=== PATIENT | male | born 1975 | race Caucasian/White ===

== ENCOUNTER 2019-11-17 04:17 | Emergency (ER) | payer MEDICARE, MEDICAID ==
[~2019-11-17] VITALS: Ht 172.7 cm; Wt 61.8 kg
[~2019-11-17 04:17] MED LIST: CITA10SO PO; CITA20TA28 PO; HAL5T PO; IBUP-1986 PO
--- NOTE | 2019-11-17 04:30 | NUR ---
PT TO CT
--- NOTE | 2019-11-17 04:40 | NUR ---
PT BACK FROM CT
[2019-11-17 05:08] LABS: BASOPHILS # (AUTO) 0.1 X10'3 (0-0.2); EOSINOPHILS # (AUTO) 0.5 X10'3 (0-0.9); EOSINOPHILS % (AUTO) 4.9 % (0-6); HEMATOCRIT 41.5 % (42.0-52.0); HEMOGLOBIN 13.9 g/dl (14.0-17.9); LYMPHOCYTES # (AUTO) 2.2 X10'3 (1.1-4.8); LYMPHOCYTES % (AUTO) 23.7 % (21-51); MEAN CORPUSCULAR HEMOGLOBIN 30.4 PG (27.0-31.0); MEAN CORPUSCULAR HGB CONC 33.4 g/dL (33.0-36.5); MEAN CORPUSCULAR VOLUME 91.1 FL (78-98); MEAN PLATELET VOLUME 6.5 FL (7.4-10.4); MONOCYTES # (AUTO) 0.9 X10'3 (0-0.9); MONOCYTES % (AUTO) 9.6 % (2-12); NEUTROPHILS # (AUTO) 5.7 X10'3 (1.8-7.7); NEUTROPHILS % (AUTO) 60.8 % (42-75); PLATELET COUNT 358 X10'3 (140-440); RED BLOOD COUNT 4.56 X10'6 (4.70-6.10); RED CELL DISTRIBUTION WIDTH 13.6 % (11.5-14.5); WHITE BLOOD COUNT 9.3 X10'3 (4.5-11.0)
[2019-11-17 05:20] LABS: ALANINE AMINOTRANSFERASE 38 U/L (12-78); ALBUMIN 3.5 G/DL (3.4-5.0); ALBUMIN/GLOBULIN RATIO 1.1 (1.1-1.5); ALKALINE PHOSPHATASE 106 IU/L (46-116); ANION GAP 6 (8-16); ASPARTATE AMINO TRANSFERASE 35 U/L (10-37); BILIRUBIN,TOTAL 0.2 MG/DL (0.1-1.0); BLOOD UREA NITROGEN 15 MG/DL (7-18); BUN/CREATININE RATIO 14.7 (5.4-32.0); CALCIUM 8.7 MG/DL (8.5-10.1); CHLORIDE 108 MMOL/L (99-107); CREATININE 1.02 MG/DL (0.60-1.10); ETHANOL < 0.010 GM/DL (0.0-0.010); GLUCOSE 82 MG/DL (70-104); POTASSIUM 3.5 MMOL/L (3.5-5.1); SODIUM 143 MMOL/L (135-145); TOTAL CARBON DIOXIDE 28.8 MMOL/L (24-32); TOTAL PROTEIN 6.8 G/DL (6.4-8.2); eGFR 79 ML/MIN
[2019-11-17 05:39] LABS: URINE AMPHETAMINE SCREEN POSITIVE (Neg); URINE BARBITUATE SCREEN NEGATIVE (Neg); URINE BENZODIAZEPINES SCREEN NEGATIVE (Neg); URINE CANNABINOID SCREEN POSITIVE (Neg); URINE COCAINE SCREEN NEGATIVE (Neg); URINE METHADONE SCREEN NEGATIVE (Neg); URINE OPIATE SCREEN NEGATIVE (Neg); URINE PHENCYCLIDINE SCREEN NEGATIVE (Neg)
--- NOTE | 2019-11-17 06:06 | NUR ---
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
[2019-11-17 06:08] VITALS: BP 108/59
== END 2019-11-17 06:12 | disposition home or self-care (01) ==
LOC: ER 04:17
DX: R41.3 Other amnesia (principal); K21.9 Gastro-esophageal reflux disease without esophagitis; F41.9 Anxiety disorder, unspecified; F31.9 Bipolar disorder, unspecified; F41.0 Panic disorder [episodic paroxysmal anxiety]; Z79.899 Other long term (current) drug therapy; W11.XXXA Fall on and from ladder, initial encounter; Y93.89 Activity, other specified; Y92.89 Other specified places as the place of occurrence of the external cause; Y99.8 Other external cause status
CPT/HCPCS: 36415; 70450; 80053; 80305; 80320; 85025; 99284

== ENCOUNTER 2020-01-22 20:50 | Emergency (ER) | payer MEDICARE, MEDICAID ==
[~2020-01-22] VITALS: Ht 177.8 cm; Wt 86.3 kg
[2020-01-22 20:52] VITALS: BP 128/90
[2020-01-22] MEDS ORDERED: naproxen 500mg tablet PO ONE (21:30)
[2020-01-22 22:08] LABS: CLARITY,URINE CLEAR (Clear); COLOR,URINE YELLOW (Yellow); GLUCOSE, URINE NEGATIVE (Neg); KETONES,URINE NEGATIVE (Neg); LEUKOCYTE ESTERASE ,URINE NEGATIVE (Neg); NITRITES, URINE NEGATIVE (Neg); OCCULT BLOOD,URINE SMALL (Neg); PROTEIN,URINE TRACE mg/dl (Neg); UROBILINOGEN,URINE 0.2 E.U/dL (0.2-1.0)
[2020-01-22 22:14] LABS: UA COLLECTION TYPE CLN CATCH MIDSTREAM
[2020-01-22 22:19] LABS: HYALINE CASTS 0-3 /LPF (NEGATIVE); MUCUS STRANDS MANY /LPF (Neg); SQUAMOUS EPITHELIAL CELL,UR FEW /LPF (FEW)
[2020-01-22 22:20] LABS: BACTERIA,URINE NONE SEEN /HPF (Neg); WBC,URINE NONE SEEN /HPF (0-4)
[2020-01-22 22:30] LABS: URINE AMPHETAMINE SCREEN POSITIVE (Neg); URINE BARBITUATE SCREEN NEGATIVE (Neg); URINE BENZODIAZEPINES SCREEN NEGATIVE (Neg); URINE CANNABINOID SCREEN POSITIVE (Neg); URINE COCAINE SCREEN NEGATIVE (Neg); URINE METHADONE SCREEN NEGATIVE (Neg); URINE OPIATE SCREEN NEGATIVE (Neg); URINE PHENCYCLIDINE SCREEN NEGATIVE (Neg)
[2020-01-22] MEDS ORDERED: NAPR-56 PO (22:40)
== END 2020-01-22 22:46 | disposition home or self-care (01) ==
LOC: ER 20:51
DX: R10.9 Unspecified abdominal pain (principal); R31.9 Hematuria, unspecified; K21.9 Gastro-esophageal reflux disease without esophagitis; F31.9 Bipolar disorder, unspecified; F41.9 Anxiety disorder, unspecified; F15.90 Other stimulant use, unspecified, uncomplicated; Z72.89 Other problems related to lifestyle; Z79.899 Other long term (current) drug therapy
CPT/HCPCS: 80305; 81001; 99283

== ENCOUNTER 2020-06-04 18:41 | Emergency (ER) | payer MEDICARE, MEDICAID ==
[~2020-06-04] VITALS: Ht 177.8 cm; Wt 75.2 kg
[2020-06-04 18:56] VITALS: BP 132/82
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
[2020-06-04] MEDS ORDERED: IBUP-1984 PO (19:34)
[2020-06-04] MEDS ORDERED: CYCL-1 PO (19:34)
== END 2020-06-04 19:49 | disposition home or self-care (01) ==
LOC: ER 18:42
DX: M79.601 Pain in right arm (principal); M54.2 Cervicalgia; K21.9 Gastro-esophageal reflux disease without esophagitis; Z79.899 Other long term (current) drug therapy
CPT/HCPCS: 99283

== ENCOUNTER 2021-03-23 23:55 | Emergency (ER) | payer MEDICARE, MEDICAID ==
[~2021-03-23] VITALS: Ht 177.8 cm; Wt 72.7 kg
[~2021-03-23 23:55] MED LIST changes: +CYCL-1 PO
[2021-03-24] MEDS ORDERED: acetaminophen 325mg tablet PO ONE (00:10)
[2021-03-24 00:24] LABS: BASOPHILS % (AUTO) 0.6 % (0-1); EOSINOPHILS % (AUTO) 0.5 % (0-6); HEMATOCRIT 40.4 % (42.0-52.0); LYMPHOCYTES # (AUTO) 0.7 X10'3 (1.1-4.8); LYMPHOCYTES % (AUTO) 10.8 % (21-51); MEAN CORPUSCULAR HEMOGLOBIN 31.2 PG (27.0-31.0); MEAN CORPUSCULAR HGB CONC 34.6 g/dL (33.0-36.5); MEAN CORPUSCULAR VOLUME 90.3 FL (78-98); MEAN PLATELET VOLUME 6.7 FL (7.4-10.4); MONOCYTES # (AUTO) 0.6 X10'3 (0-0.9); MONOCYTES % (AUTO) 10.2 % (2-12); NEUTROPHILS # (AUTO) 4.9 X10'3 (1.8-7.7); NEUTROPHILS % (AUTO) 77.9 % (42-75); PLATELET COUNT 294 X10'3 (140-440); RED BLOOD COUNT 4.47 X10'6 (4.70-6.10); RED CELL DISTRIBUTION WIDTH 13.7 % (11.5-14.5); WHITE BLOOD COUNT 6.4 X10'3 (4.5-11.0)
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
[2021-03-24 00:39] LABS: ALANINE AMINOTRANSFERASE 30 U/L (12-78); ALBUMIN 3.6 G/DL (3.4-5.0); ALKALINE PHOSPHATASE 104 IU/L (46-116); ANION GAP 9 (8-16); ASPARTATE AMINO TRANSFERASE 26 U/L (10-37); BILIRUBIN,TOTAL 0.2 MG/DL (0.1-1.0); BLOOD UREA NITROGEN 13 MG/DL (7-18); BUN/CREATININE RATIO 12.3 (5.4-32.0); CALCIUM 7.9 MG/DL (8.5-10.1); CHLORIDE 105 MMOL/L (99-107); CREATININE 1.06 MG/DL (0.60-1.10); GLUCOSE 105 MG/DL (70-104); POTASSIUM 3.6 MMOL/L (3.5-5.1); SODIUM 143 MMOL/L (135-145); TOTAL CARBON DIOXIDE 29.5 MMOL/L (24-32); TOTAL PROTEIN 7.2 G/DL (6.4-8.2); eGFR 75 ML/MIN
[2021-03-24] MEDS ORDERED: aspirin 81mg tab.chew PO ONE (01:50)
[2021-03-24 02:46] VITALS: BP 98/70
[2021-03-24] MEDS ORDERED: DEXAMETHASONE 6 MG TABLET PO ONE (03:20)
[2021-03-24] MEDS ORDERED: DEXAMETHASONE 6 MG TABLET PO SCH (03:20)
[2021-03-24] MEDS ORDERED: DEXA6TAB6 PO (03:22)
--- NOTE | 2021-03-24 03:41 | NUR ---
ATTEMPTED TO MEDICATE AND D/C PT. PT NOT IN RAP AREA. NOTIFIED.
--- NOTE | 2021-03-24 04:00 | NUR ---
attempted to medicate and d/c pt. pt still not in rap area.
--- NOTE | 2021-03-24 04:20 | NUR ---
attempted to d/c and medicate. still not in rap area. left without paperwork, rx or decadron. md salmon aware.
== END 2021-03-24 04:23 | disposition home or self-care (01) ==
LOC: ER 23:56
DX: U07.1 COVID-19 (principal); R06.02 Shortness of breath; K21.9 Gastro-esophageal reflux disease without esophagitis; F15.90 Other stimulant use, unspecified, uncomplicated; F17.200 Nicotine dependence, unspecified, uncomplicated; Z72.89 Other problems related to lifestyle; Z79.899 Other long term (current) drug therapy
CPT/HCPCS: 36415; 71045; 80053; 83605; 83880; 84145; 84484; 85025; 87040; 87635; 93005; 99285; C9803

== ENCOUNTER 2022-07-09 03:53 | Emergency (ER) | payer MEDICARE, MEDICAID ==
[~2022-07-09] VITALS: Ht 177.8 cm; Wt 75.5 kg
[~2022-07-09 03:53] MED LIST changes: -CITA10SO PO; -CITA20TA28 PO; -CYCL-1 PO; -HAL5T PO; +SULF1TAB45 PO
[2022-07-09] MEDS ORDERED: sulfamethoxazole/trimethoprim DS (800/160mg) tablet PO ONE (04:40)
[2022-07-09] MEDS ORDERED: SULF1TAB49 PO (04:56)
[2022-07-09 04:57] VITALS: BP 110/78
[2022-07-09] MEDS ORDERED: ibuprofen tablet 400 MG TABLET PO ONE (05:40)
== END 2022-07-09 05:47 | disposition home or self-care (01) ==
LOC: ER 03:53
DX: L02.512 Cutaneous abscess of left hand (principal); K21.9 Gastro-esophageal reflux disease without esophagitis; F41.9 Anxiety disorder, unspecified; F31.9 Bipolar disorder, unspecified; F17.200 Nicotine dependence, unspecified, uncomplicated; F15.90 Other stimulant use, unspecified, uncomplicated; Z72.89 Other problems related to lifestyle; Z79.2 Long term (current) use of antibiotics; Z79.899 Other long term (current) drug therapy
CPT/HCPCS: 26010; 99283; A6449

== ENCOUNTER 2022-08-24 07:44 | Emergency (ER) | payer MEDICARE, MEDICAID ==
[~2022-08-24] VITALS: Ht 177.8 cm; Wt 77.2 kg
[2022-08-24 07:45] VITALS: BP 120/88
[2022-08-24] MEDS ORDERED: sulfamethoxazole/trimethoprim DS (800/160mg) tablet PO ONE (09:05)
[2022-08-24] MEDS ORDERED: ibuprofen tablet 400 MG TABLET PO ONE (09:05)
[2022-08-24] MEDS ORDERED: TETanus/Pertussis (Acell)/Diphther VAC/PF (Tdap-Adult) 0.5ml syringe IMVAC ONE (09:05)
[2022-08-24] MEDS ORDERED: LIDOCAINE 2%/EPI 1:100,000 inj. Multi-dose 20 ML VIAL IJ ONE (09:05)
[2022-08-24] MEDS ORDERED: SULF1TAB49 PO (09:49)
== END 2022-08-24 09:55 | disposition home or self-care (01) ==
LOC: ER 07:45
DX: L02.31 Cutaneous abscess of buttock (principal); F31.9 Bipolar disorder, unspecified; K21.9 Gastro-esophageal reflux disease without esophagitis; F15.10 Other stimulant abuse, uncomplicated; Z59.00 Homelessness unspecified; Z56.0 Unemployment, unspecified; Z79.1 Long term (current) use of non-steroidal anti-inflammatories (NSAID)
CPT/HCPCS: 10060; 90471; 90715; 99283

== ENCOUNTER 2022-10-07 15:45 | Emergency (ER) | payer MEDICARE, MEDICAID ==
[~2022-10-07] VITALS: Ht 177.8 cm; Wt 73.0 kg
[2022-10-07 16:08] VITALS: BP 121/79
[2022-10-07] MEDS ORDERED: bacitracin 15gm ointment TP ONE (17:40)
[2022-10-07] MEDS ORDERED: LIDOCAINE 2%/EPI 1:100,000 inj. Multi-dose 20 ML VIAL IJ ONE (17:40)
[2022-10-07] MEDS ORDERED: DOXY-1 PO (17:52)
== END 2022-10-07 20:13 | disposition home or self-care (01) ==
LOC: ER 15:46
DX: L02.212 Cutaneous abscess of back [any part, except buttock and flank] (principal); K21.9 Gastro-esophageal reflux disease without esophagitis; F31.9 Bipolar disorder, unspecified; F15.20 Other stimulant dependence, uncomplicated; Z59.00 Homelessness unspecified; Z56.0 Unemployment, unspecified
CPT/HCPCS: 10060; 99283

== ENCOUNTER 2022-12-20 14:32 | Emergency (ER) | payer MEDICARE, MEDICAID ==
[~2022-12-20] VITALS: Ht 177.8 cm; Wt 71.0 kg
[2022-12-20 14:35] VITALS: BP 106/76
[2022-12-20] MEDS ORDERED: ibuprofen 200mg tablet PO ONE (15:50)
== END 2022-12-20 16:48 | disposition home or self-care (01) ==
LOC: ER 14:32
DX: M54.2 Cervicalgia (principal); M19.90 Unspecified osteoarthritis, unspecified site; R20.2 Paresthesia of skin; K21.9 Gastro-esophageal reflux disease without esophagitis; F31.9 Bipolar disorder, unspecified; F15.20 Other stimulant dependence, uncomplicated; Z59.00 Homelessness unspecified; Z56.0 Unemployment, unspecified
CPT/HCPCS: 72040; 73030; 99284; A4565

== ENCOUNTER 2023-02-25 16:50 | Emergency (ER) | payer MEDICARE, MEDICAID ==
[~2023-02-25] VITALS: Ht 172.7 cm; Wt 57.8 kg
[~2023-02-25 16:50] MED LIST changes: -SULF1TAB45 PO
[2023-02-25 16:54] VITALS: BP 125/95; PULSE 105; RESP 16; TEMP 97.4; O2SAT 97
== END 2023-02-25 17:01 | disposition home or self-care (01) ==
LOC: ER 16:51
DX: F29 Unspecified psychosis not due to a substance or known physiological condition (principal); K21.9 Gastro-esophageal reflux disease without esophagitis; F31.9 Bipolar disorder, unspecified; F15.10 Other stimulant abuse, uncomplicated; Z59.00 Homelessness unspecified; Z56.0 Unemployment, unspecified
CPT/HCPCS: 99283

== ENCOUNTER 2023-10-20 16:34 | Emergency (ER) | payer MEDICARE, MEDICAID ==
[~2023-10-20] VITALS: Ht 182.9 cm; Wt 72.7 kg
[2023-10-20 16:43] VITALS: BP 119/81; TEMP 98.8
[2023-10-20 17:00] LABS: BASOPHILS # (AUTO) 0.1 X10'3 (0-0.2); BASOPHILS % (AUTO) 0.6 % (0-1); EOSINOPHILS # (AUTO) 0.2 X10'3 (0-0.9); EOSINOPHILS % (AUTO) 2.2 % (0-6); HEMATOCRIT 38.7 % (42.0-52.0); HEMOGLOBIN 13.3 g/dl (14.0-17.9); LYMPHOCYTES % (AUTO) 9.5 % (21-51); MEAN CORPUSCULAR HEMOGLOBIN 30.6 PG (27.0-31.0); MEAN CORPUSCULAR HGB CONC 34.2 g/dL (33.0-36.5); MEAN CORPUSCULAR VOLUME 89.4 FL (78-98); MEAN PLATELET VOLUME 6.5 FL (7.4-10.4); MONOCYTES % (AUTO) 9.8 % (2-12); NEUTROPHILS % (AUTO) 77.9 % (42-75); PLATELET COUNT 343 X10'3 (140-440); RED BLOOD COUNT 4.33 X10'6 (4.70-6.10); RED CELL DISTRIBUTION WIDTH 13.9 % (11.5-14.5); WHITE BLOOD COUNT 10.3 X10'3 (4.5-11.0)
[2023-10-20 17:14] LABS: ALBUMIN 3.3 G/DL (3.4-5.0); ANION GAP 7 (8-16); BLOOD UREA NITROGEN 23 MG/DL (7-18); BUN/CREATININE RATIO 19.8 (10.0-20.0); CALCIUM 8.5 MG/DL (8.5-10.1); CHLORIDE 106 MMOL/L (99-107); CREATININE 1.16 MG/DL (0.60-1.10); GLUCOSE 58 MG/DL (70-104); LIPASE 40 U/L (16-77); SODIUM 143 MMOL/L (135-145); TOTAL CARBON DIOXIDE 30.4 MMOL/L (24-32); eCRCL 80 ML/MIN; eGFR 67 ML/MIN
[2023-10-20 17:21] LABS: ETHANOL < 10 MG/DL (<10)
[2023-10-20] MEDS ORDERED: AZIT500T9 PO (20:21)
[2023-10-20 20:46] VITALS: PULSE 82; RESP 16; O2SAT 98
== END 2023-10-20 20:48 | disposition home or self-care (01) ==
LOC: ER 16:35
DX: E16.2 Hypoglycemia, unspecified (principal); Z20.822 Contact with and (suspected) exposure to COVID-19; R11.10 Vomiting, unspecified; J18.9 Pneumonia, unspecified organism; K21.9 Gastro-esophageal reflux disease without esophagitis; F31.9 Bipolar disorder, unspecified; F15.90 Other stimulant use, unspecified, uncomplicated; Z79.2 Long term (current) use of antibiotics; Z79.1 Long term (current) use of non-steroidal anti-inflammatories (NSAID)
CPT/HCPCS: 36415; 70450; 74176; 80048; 80320; 82948; 83690; 84484; 85025; 99284

== ENCOUNTER 2023-11-26 00:05 | Emergency (ER) | payer MEDICARE, MEDICAID ==
[~2023-11-26] VITALS: Ht 177.8 cm; Wt 81.8 kg
[~2023-11-26 00:05] MED LIST changes: +AZIT500T9 PO
[2023-11-26 00:13] VITALS: TEMP 98
[2023-11-26] MEDS: ibuprofen tablet 400 MG TABLET PO ONE (02:00)
[2023-11-26] MEDS: acetaminophen 325mg tablet PO ONE (02:00)
[2023-11-26 02:04] VITALS: BP 148/74; PULSE 91; O2SAT 98
[2023-11-26 02:05] VITALS: RESP 16
== END 2023-11-26 02:08 | disposition home or self-care (01) ==
LOC: ER 00:07
DX: S42.002A Fracture of unspecified part of left clavicle, initial encounter for closed fracture (principal); M25.512 Pain in left shoulder; K21.9 Gastro-esophageal reflux disease without esophagitis; F31.9 Bipolar disorder, unspecified; F15.90 Other stimulant use, unspecified, uncomplicated; Z88.8 Allergy status to other drugs, medicaments and biological substances; Z79.1 Long term (current) use of non-steroidal anti-inflammatories (NSAID); Z79.2 Long term (current) use of antibiotics; V19.88XA Pedal cyclist (driver) (passenger) injured in other specified transport accidents, initial encounter; Y93.89 Activity, other specified; Y92.89 Other specified places as the place of occurrence of the external cause; Y99.8 Other external cause status
CPT/HCPCS: 99283

== ENCOUNTER 2024-04-17 18:57 | Emergency (ER) | payer MEDICARE, MEDICAID ==
[~2024-04-17] VITALS: Ht 177.8 cm; Wt 73.5 kg
[2024-04-17] MEDS ORDERED: HYDR-3965 PO (20:28)
[2024-04-17] MEDS ORDERED: AMOX-117 PO (20:28)
[2024-04-17] MEDS: CefTRIAXone 1000mg IM Kit (w/lidocaine diluent) IM ONE (20:38)
[2024-04-17 20:50] VITALS: BP 123/87; PULSE 69; RESP 18; TEMP 98.3; O2SAT 99
== END 2024-04-17 21:01 | disposition home or self-care (01) ==
LOC: ER 18:58
DX: S02.40DA Maxillary fracture, left side, initial encounter for closed fracture (principal); S02.40FA Zygomatic fracture, left side, initial encounter for closed fracture; S02.32XA Fracture of orbital floor, left side, initial encounter for closed fracture; K21.9 Gastro-esophageal reflux disease without esophagitis; F41.9 Anxiety disorder, unspecified; F32.A Depression, unspecified; F41.0 Panic disorder [episodic paroxysmal anxiety]; F15.90 Other stimulant use, unspecified, uncomplicated; Z72.89 Other problems related to lifestyle; Z59.00 Homelessness unspecified; Z88.8 Allergy status to other drugs, medicaments and biological substances; Z79.1 Long term (current) use of non-steroidal anti-inflammatories (NSAID); Z79.2 Long term (current) use of antibiotics; Z56.0 Unemployment, unspecified; Y04.0XXA Assault by unarmed brawl or fight, initial encounter; Y92.89 Other specified places as the place of occurrence of the external cause; Y99.8 Other external cause status
CPT/HCPCS: 70450; 70486; 96372; 99285; J0696

== ENCOUNTER 2024-05-27 13:19 | Emergency (ER) | payer MEDICARE, MEDICAID ==
[~2024-05-27] VITALS: Ht 177.8 cm; Wt 72.7 kg
[2024-05-27 14:06] VITALS: BP 129/78; PULSE 75; RESP 16; TEMP 97.9; O2SAT 98
== END 2024-05-27 17:31 | disposition left against medical advice (07) ==
LOC: ER 13:19
DX: R11.0 Nausea (principal); Z53.21 Procedure and treatment not carried out due to patient leaving prior to being seen by health care provider; Z88.8 Allergy status to other drugs, medicaments and biological substances

== ENCOUNTER 2024-08-24 23:20 | Emergency (ER) | payer MEDICARE, MEDICAID ==
[~2024-08-24] VITALS: Ht 185.4 cm; Wt 74.0 kg
[2024-08-25] MEDS: acetaminophen 325mg tablet PO ONE (01:25)
[2024-08-25] MEDS: ketorolac trometh 15mg/ml vial 15 MG/ML ML IM ONE (01:25)
[2024-08-25] MEDS: proCHLORperazine 10mg tablet PO ONE (01:25)
[2024-08-25 02:06] VITALS: PULSE 100
[2024-08-25 03:41] VITALS: BP 111/62; RESP 12; TEMP 97.6; O2SAT 98
== END 2024-08-25 03:46 | disposition home or self-care (01) ==
LOC: ER 23:20
DX: R51.9 Headache, unspecified (principal); K21.9 Gastro-esophageal reflux disease without esophagitis; F41.9 Anxiety disorder, unspecified; F32.A Depression, unspecified; F41.0 Panic disorder [episodic paroxysmal anxiety]; F15.90 Other stimulant use, unspecified, uncomplicated; Z59.00 Homelessness unspecified; Z56.0 Unemployment, unspecified; Z72.89 Other problems related to lifestyle; Z79.1 Long term (current) use of non-steroidal anti-inflammatories (NSAID)
CPT/HCPCS: 70450; 96372; 99285; J1885; Q0164

== ENCOUNTER 2024-09-22 10:27 | Emergency (ER) | payer MEDICARE, MEDICAID ==
[~2024-09-22] VITALS: Ht 177.8 cm; Wt 76.3 kg
[2024-09-22 10:46] VITALS: BP 127/78; PULSE 80; TEMP 97.7; O2SAT 98
[2024-09-22 11:39] LABS: BASOPHILS # (AUTO) 0.1 X10'3 (0-0.2); BASOPHILS % (AUTO) 1.1 % (0-1); EOSINOPHILS # (AUTO) 0.2 X10'3 (0-0.9); EOSINOPHILS % (AUTO) 2.6 % (0-6); HEMATOCRIT 40.1 % (42.0-52.0); HEMOGLOBIN 13.8 g/dl (14.0-17.9); LYMPHOCYTES # (AUTO) 1.8 X10'3 (1.1-4.8); LYMPHOCYTES % (AUTO) 22.1 % (21-51); MEAN CORPUSCULAR HEMOGLOBIN 30.8 PG (27.0-31.0); MEAN CORPUSCULAR HGB CONC 34.3 g/dL (33.0-36.5); MEAN CORPUSCULAR VOLUME 89.9 FL (78-98); MEAN PLATELET VOLUME 6.6 FL (7.4-10.4); MONOCYTES # (AUTO) 0.9 X10'3 (0-0.9); MONOCYTES % (AUTO) 11.2 % (2-12); NEUTROPHILS # (AUTO) 5.2 X10'3 (1.8-7.7); PLATELET COUNT 389 X10'3 (140-440); RED BLOOD COUNT 4.47 X10'6 (4.70-6.10); RED CELL DISTRIBUTION WIDTH 13.8 % (11.5-14.5); WHITE BLOOD COUNT 8.3 X10'3 (4.5-11.0)
[2024-09-22 11:46] LABS: APTT 29 SECONDS (22-32); PROTHROMBIN TIME 10.5 SECONDS (9.0-12.0)
[2024-09-22 11:48] LABS: ALANINE AMINOTRANSFERASE 36 U/L (12-78); ALBUMIN 3.7 G/DL (3.4-5.0); ALKALINE PHOSPHATASE 114 IU/L (46-116); ANION GAP 5 (8-16); ASPARTATE AMINO TRANSFERASE 34 U/L (10-37); BILIRUBIN,TOTAL 0.5 MG/DL (0.1-1.0); BLOOD UREA NITROGEN 14 MG/DL (7-18); BUN/CREATININE RATIO 20.9 (10.0-20.0); CALCIUM 8.7 MG/DL (8.5-10.1); CHLORIDE 106 MMOL/L (99-107); CREATININE 0.67 MG/DL (0.60-1.10); GLUCOSE 88 MG/DL (70-104); POTASSIUM 3.7 MMOL/L (3.5-5.1); SODIUM 141 MMOL/L (135-145); TOTAL CARBON DIOXIDE 30.4 MMOL/L (24-32); TOTAL PROTEIN 7.5 G/DL (6.4-8.2); eCRCL 138 ML/MIN; eGFR > 90 ML/MIN
[2024-09-22 11:55] LABS: BILIRUBIN,DIRECT 0.1 MG/DL (0-0.3); MAGNESIUM 2.1 MG/DL (1.5-2.4); PRO BRAIN NATRIURETIC PEPTIDE 97 PG/ML (0-125)
[2024-09-22 12:18] VITALS: RESP 16
[2024-09-22 12:29] LABS: ETHANOL < 10 MG/DL (<10)
== END 2024-09-22 13:54 | disposition home or self-care (01) ==
LOC: ER 10:27
DX: Z00.00 Encounter for general adult medical examination without abnormal findings (principal); F15.10 Other stimulant abuse, uncomplicated; F31.9 Bipolar disorder, unspecified; K21.9 Gastro-esophageal reflux disease without esophagitis; F41.9 Anxiety disorder, unspecified
CPT/HCPCS: 36415; 71045; 80048; 80076; 83735; 83880; 84484; 85025; 85610; 85730; 93005; 99285; A6449; G0480; 80320

== ENCOUNTER 2025-02-18 08:00 | Emergency (ER) | payer MEDICARE, MEDICAID ==
[~2025-02-18] VITALS: Ht 177.8 cm; Wt 81.7 kg
[2025-02-18 08:04] VITALS: TEMP 98
--- NOTE | 2025-02-18 08:05 | ELECTROCARDIOGRAPH REPORT ---
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 Camilo Zaman Measurements Intervals Hulbert Rate: 63 P: 49 TN: 135 QRS: 37 QRSD: 93 T: 55 QT: 418 QTc: 428 Interpretive Statements Sinus rhythm Low voltage, extremity and precordial leads Electronically Signed On 02-18-2025 18:25:[address] Camilo Zaman Please click the below link to view image of tracing.
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
[2025-02-18] MEDS: ketorolac trometh 30MG/ML vial 30 MG/ML VIAL IV ONE (08:21)
--- NOTE | 2025-02-18 08:43 | RADIOLOGY REPORT ---
CHEST RADIOGRAPH Indication: CP Technique: Single frontal view of the chest was obtained COMPARISON: DI CHEST,SINGLE VIEW on DOS: 09/22/24, CHEST,SINGLE VIEW on DOS: 03/24/21 FINDINGS: Lines and Tubes: None Lungs: Clear Pleura: No effusion. No pneumothorax. Cardiomediastinal contours: Unremarkable Bones: Unremarkable IMPRESSION: No acute disease.
[2025-02-18 08:49] LABS: MEAN PLATELET VOLUME 6.5 FL (7.4-10.4); RED CELL DISTRIBUTION WIDTH 13.9 % (11.5-14.5)
[2025-02-18 09:10] LABS: CREATININE 0.80 MG/DL (0.60-1.10); PRO BRAIN NATRIURETIC PEPTIDE < 30 PG/ML (0-125); TOTAL CARBON DIOXIDE 29.7 MMOL/L (24-32); eCRCL 114 ML/MIN; eGFR > 90 ML/MIN
[2025-02-18 11:20] VITALS: BP 115/70; PULSE 55; RESP 18; O2SAT 98
== END 2025-02-18 11:34 | disposition home or self-care (01) ==
LOC: ER 08:00
DX: R07.89 Other chest pain (principal); M25.522 Pain in left elbow; F31.9 Bipolar disorder, unspecified; F17.200 Nicotine dependence, unspecified, uncomplicated; K21.9 Gastro-esophageal reflux disease without esophagitis; F15.90 Other stimulant use, unspecified, uncomplicated; Z88.8 Allergy status to other drugs, medicaments and biological substances; Z59.00 Homelessness unspecified
CPT/HCPCS: 36415; 71045; 80053; 83735; 83880; 84439; 84443; 84484; 85025; 85379; 93005; 96374; 99285; J1885; Q0177